=== PATIENT | male | born 1950 | race Caucasian/White ===

== ENCOUNTER 2017-11-12 10:32 | Inpatient (IN) | payer OTHER, BC ==
[~2017-11-12] VITALS: Ht 182.9 cm; Wt 86.2 kg
--- NOTE | ~2017-11-12 | HC ---
[facility] [place] [address] CONSULTATION Name: NATALIIAANNE W Room #: 349-I ADM IN ..#: [id number] Admission: 11/12/17 Attend Phys: Noah Handy MD Discharge: Date of : 52 Report #: [id number] THIS REPORT FOR: //name// CC: Noah Simon DATE OF SERVICE: 11/13/2017 ATTENDING PHYSICIAN: Dr. Handy. REASON FOR EVALUATION: Severe headache, recent epidural lumbar injection. HISTORY OF PRESENT ILLNESS: Chart reviewed, patient examined. This is a 67-year-old with history of hypertension, does have chronic back pain, has had a history of several procedures in the past. More recently, he got a series of caudal epidural injections, most recently within the last week and developed onset of severe occipital posterior type headache, is really unrelenting. Denied any antecedent injury. He did not really have any systemic illness, no fevers or chills. Appetite has been somewhat diminished. No pulmonary or gastrointestinal related complaints. Due to the lack of resolution in spite of medications, he was evaluated in the Emergency Room, underwent lumbar puncture that was generally unrevealing in terms of inflammation, was clear and colorless, with 1 white cell and no red cells. Glucose was normal and protein was elevated at 62. Cultures pending. Imaging of the head and CT spine were otherwise unremarkable as well for any acute process. Does have advanced cervical and upper thoracic spondylosis. Lactic acid is 1.1. He did have elevated CRP of 179.6. He was treated empirically with combination therapy of vancomycin as well as ceftriaxone. Today, he feels somewhat better. The pain has been controlled, he attributes that to the narcotic analgesics. On questioning, he denies any particular exposure history. He did travel to [place] earlier this week, rode on a plane. He has not had any dietary indiscretion. He is not aware of any percutaneous exposure, did note that his left hand dorsal radial aspect has had some swelling that he cannot account for. No recent dental procedures. ALLERGIES: None known. CURRENT MEDICATIONS: Include finasteride, atorvastatin, ezetimibe, vancomycin, ceftriaxone, gabapentin, p.r.n. analgesics, antiemetics. PAST MEDICAL HISTORY: Above noted hypertension, high cholesterol, back surgeries and chronic back pain. SOCIAL HISTORY: Former smoker, occasional ethanol. FAMILY HISTORY: Noncontributory. [facility] [address] [place] [address] CONSULTATION Name: ANNE WILLIAM Room #: 349-I [facility]#: [id number] Admission: 11/12/17 Attend Phys: Noah Handy MD Discharge: Date of : 52 Report #: [id number] REVIEW OF SYSTEMS: As above. PHYSICAL EXAMINATION: GENERAL: Alert, cooperative, pleasant, only mild distress. He is completely lucid. VITAL SIGNS: Temperature 97.4, pulse 60, respirations 16, blood pressure 127/77. SKIN: Warm, dry, no rashes. HEENT: There is really no meningismus that I can appreciate. No significant palpable tenderness associated with the cervical spine on the scalp. There are no inflammatory changes noted superficially. LUNGS: Clear to auscultation. HEART: Regular. I do not appreciate murmur. ABDOMEN: Soft, nontender. EXTREMITIES: Left hand does have some swelling associated with the dorsal aspect of his thumb, is not particularly tender, nor there is any redness there. GENITOURINARY: Deferred. RECTAL: Deferred. LABORATORY DATA: Urinalysis is unremarkable. Electrolytes: Sodium 134, potassium 3.4, chloride 101, bicarbonate is 26, anion gap of 7, BUN and creatinine 17 and 1.1, glucose of 99. Estimated GFR 67. CBC: White count 11.2, hemoglobin 12.2, platelet count of 262. Chest x-ray, no acute process. Uric acid 7.1. ASSESSMENT: Headache, uncertain etiology, seems perhaps not coincidental the timing of the caudal epidural abscess. There was discussion about possible spinal tap related headache. It is not clear that it is real positional. Again, he has got relief. We will continue empiric therapy given it was started. Await culture results as the gold standard. I did discuss with the patient who voiced understanding. We will pursue any further signs or symptoms that he may develop. Thank you. We will follow, <ELECTRONICALLY SIGNED> By: Adriná Christine MD 11/14/17 [id number] [id number] Adrián Christine MD /nt
[~2017-11-12 10:32] MED LIST: AMLODIPINE BESY10 MG PO; ASPIRIN81 M2 PO; BENAZEPRIL HCL40 MG PO; CARDURA2 MG PO; HYDROCHLOROTH12.5 MG PO; LIPITOR80 MG PO; OMEGA-31000 M1 PO; PREDNISONE50 MG PO; WELCHOL3.75 GM PO; ZETIA10 MG PO; ZOFRAN ODT4 MG PO
[2017-11-12 10:33] VITALS: BP 120/74
[2017-11-12] MEDS ORDERED: ATIVAN0.5 MG PO (10:51)
[2017-11-12] MEDS ORDERED: GABAPENTIN 100100 MG PO (10:52)
[2017-11-12] MEDS ORDERED: FINASTERIDE5 MG PO (10:53)
[2017-11-12] MEDS ORDERED: LOSARTAN POTAS100 MG PO (10:53)
[2017-11-12] MEDS ORDERED: VITAMIN D1000 UNI1 PO (10:54)
[2017-11-12] MEDS ORDERED: HYDROCHLOROTHIA25 M2 PO (10:54)
[2017-11-12 11:31] LABS: ABSOLUTE NEUTROPHILS 10.6 thou/uL (1.4-8.2); BASOPHILS 0.5 % (0.0-2.0); EOSINOPHILS 0.3 % (0.0-3.0); HEMATOCRIT 39.7 % (42.0-52.0); HEMOGLOBIN 13.8 gm/dL (14.0-18.0); LYMPHOCYTES 7.5 % (24.0-44.0); MCH 32.9 pg (26.0-34.0); MCHC 34.7 g/dL (28.0-37.0); MCV 94.7 fL (80.0-100.0); MONOCYTES 11.3 % (1.0-8.0); PLATELET COUNT 265 thou/uL (150-400); POLYS 80.4 % (36.0-66.0); RBC 4.19 mil/uL (4.50-6.00); RDW 13.8 % (10.5-14.5); WBC 13.2 thou/uL (4.0-11.0)
[2017-11-12 11:39] LABS: CALCIUM 9.4 mg/dL (8.5-10.1); CREATININE 1.3 mg/dL (0.7-1.3); POTASSIUM 3.4 mmol/L (3.5-5.1)
[2017-11-12 15:37] LABS: CSF GLUCOSE 62 mg/dL (40-70); CSF PROTEIN 62 mg/dL (15-45)
[2017-11-12 16:00] LABS: CSF CLARITY CLEAR; CSF COLOR COLORLESS; CSF RBC 0 /mm3; CSF WBC 1 /mm3 (0-10); VOLUME 4 ml
[2017-11-12 16:07] VITALS: BP 109/69
[2017-11-12 17:16] VITALS: BP 119/64
[2017-11-12 17:30] VITALS: BP 125/78
[2017-11-12 19:40] VITALS: BP 116/75
[2017-11-12 23:35] VITALS: BP 149/91
[2017-11-13 03:45] VITALS: BP 153/89
[2017-11-13] MEDS ORDERED: NEURONTIN 300300 M1 PO (04:33)
[2017-11-13 06:00] LABS: HEMATOCRIT 36.3 % (42.0-52.0); HEMOGLOBIN 12.2 gm/dL (14.0-18.0); MCH 32.5 pg (26.0-34.0); MCHC 33.6 g/dL (28.0-37.0); MCV 96.8 fL (80.0-100.0); RBC 3.75 mil/uL (4.50-6.00); RDW 13.9 % (10.5-14.5); WBC 11.2 thou/uL (4.0-11.0)
[2017-11-13 06:04] LABS: URINE BILIRUBIN NEGATIVE (Negative); URINE BLOOD NEGATIVE (Negative); URINE CLARITY CLEAR; URINE COLOR YELLOW; URINE GLUCOSE-RANDOM* NEGATIVE (Negative); URINE KETONES NEGATIVE (Negative); URINE LEUKOCYTES-REFLEX NEGATIVE (Negative); URINE NITRITE-REFLEX NEGATIVE (Negative); URINE PROTEIN (DIPSTICK) NEGATIVE (Negative); URINE SPECIFIC GRAVITY 1.025 (1.005-1.035); URINE UROBILINOGEN 0.2 E.U./dl (0.2-1.0)
[2017-11-13 06:07] LABS: CALCIUM 8.6 mg/dL (8.5-10.1); CREATININE 1.1 mg/dL (0.7-1.3); POTASSIUM 3.4 mmol/L (3.5-5.1)
[2017-11-13 07:46] VITALS: BP 127/77
[2017-11-13 12:07] VITALS: BP 153/76
[2017-11-13 19:34] VITALS: BP 152/80
[2017-11-14 03:15] VITALS: BP 149/87
[2017-11-14 06:44] LABS: HEMATOCRIT 36.4 % (42.0-52.0); HEMOGLOBIN 12.1 gm/dL (14.0-18.0); MCH 32.2 pg (26.0-34.0); MCHC 33.1 g/dL (28.0-37.0); MCV 97.2 fL (80.0-100.0); RBC 3.75 mil/uL (4.50-6.00); RDW 13.5 % (10.5-14.5); WBC 8.2 thou/uL (4.0-11.0)
[2017-11-14 07:10] VITALS: BP 142/86
[2017-11-14 07:33] LABS: CALCIUM 8.7 mg/dL (8.5-10.1); POTASSIUM 3.3 mmol/L (3.5-5.1)
[2017-11-14 11:00] VITALS: BP 133/82
[2017-11-14 19:51] VITALS: BP 180/81
[2017-11-15 03:44] VITALS: BP 144/89
[2017-11-15 05:40] LABS: HEMATOCRIT 36.5 % (42.0-52.0); HEMOGLOBIN 12.3 gm/dL (14.0-18.0); MCH 32.3 pg (26.0-34.0); MCHC 33.6 g/dL (28.0-37.0); MCV 96.1 fL (80.0-100.0); PLATELET COUNT 267 thou/uL (150-400); RDW 13.6 % (10.5-14.5); WBC 7.7 thou/uL (4.0-11.0)
[2017-11-15 05:54] LABS: CALCIUM 8.7 mg/dL (8.5-10.1); CREATININE 0.9 mg/dL (0.7-1.3); POTASSIUM 3.7 mmol/L (3.5-5.1)
[2017-11-15 07:32] LABS: ABSOLUTE NEUTROPHILS 5.9 thou/uL (1.4-8.2)
[2017-11-15 07:33] LABS: PLATELET ESTIMATE NORMAL
[2017-11-15 10:07] VITALS: BP 155/86
[2017-11-15] MEDS ORDERED: MOBIC7.5 M1 PO (12:49)
[2017-11-15 13:09] VITALS: BP 155/86
[2017-11-16 09:10] LABS: ANA INTERPRETATION Negative (Negative)
== END 2017-11-15 14:52 | disposition home or self-care (01) | DRG 551 ==
LOC: ER 10:32 → 3W 15:20 → EROBS 15:20 → 3W 17:24 → 4W 11-14 17:24
PROVIDERS: Emergency Medicine; Hospitalist; Specialist
PROC: 009U3ZX Drainage of Spinal Canal, Percutaneous Approach, Diagnostic (ICD-10-PCS; principal; 2017-11-12)
DX: M54.2 Cervicalgia (principal); E43 Unspecified severe protein-calorie malnutrition; R51 Headache; D72.829 Elevated white blood cell count, unspecified; I10 Essential (primary) hypertension; M10.9 Gout, unspecified; M19.032 Primary osteoarthritis, left wrist; K59.00 Constipation, unspecified; M65.88 Other synovitis and tenosynovitis, other site; E78.5 Hyperlipidemia, unspecified; E78.00 Pure hypercholesterolemia, unspecified; G89.29 Other chronic pain; M54.9 Dorsalgia, unspecified; Z68.25 Body mass index [BMI] 25.0-25.9, adult; Z79.82 Long term (current) use of aspirin; Z79.899 Other long term (current) drug therapy; Z98.52 Vasectomy status; Z98.890 Other specified postprocedural states; Z87.891 Personal history of nicotine dependence
CPT/HCPCS: 10045; 10779; 10879

== ENCOUNTER → 2020-04-07 | Outpatient (CLI) | payer OTHER, BC ==
[~2020-04-07] MED LIST changes: +ATIVAN0.5 MG PO; +FINASTERIDE5 MG PO; +GABAPENTIN 100100 MG PO; +HYDROCHLOROTHIA25 M2 PO; +LOSARTAN POTAS100 MG PO; +MOBIC7.5 M1 PO; +NEURONTIN 300300 M1 PO; +VITAMIN D1000 UNI1 PO
== END ==
LOC: SJCVC 09:59
PROVIDERS: ATTEND Internal Medicine Cardiovascular Disease
DX: R94.31 Abnormal electrocardiogram [ECG] [EKG] (principal); I10 Essential (primary) hypertension; R93.1 Abnormal findings on diagnostic imaging of heart and coronary circulation; E78.00 Pure hypercholesterolemia, unspecified; Z79.899 Other long term (current) drug therapy; Z87.891 Personal history of nicotine dependence

== ENCOUNTER → 2021-04-16 | Outpatient (CLI) | payer OTHER, BC | LOC: SJCVCIMAG 06:35 | PROVIDERS: ATTEND Internal Medicine Cardiovascular Disease | DX: R93.1 Abnormal findings on diagnostic imaging of heart and coronary circulation (principal); I10 Essential (primary) hypertension; E78.5 Hyperlipidemia, unspecified ==